=== PATIENT | female | born 1990 | race Caucasian/White ===

== ENCOUNTER 2016-11-10 10:45 | Emergency (ER) | payer OTHER ==
[2016-11-10] MEDS ORDERED: SODIUM CHLORIDE 0.9% 1,000 ML IV ONE (11:16)
[2016-11-10 11:35] LABS: Amorphous Sediment,Urine Few /hpf; Appearance,Urine Cloudy (Clear); Bacteria,Urine Occasional /hpf; Bilirubin,Urine Negative (Negative); Glucose,Urine (UA) Negative (Negative); Ketones,Urine Negative (Negative); Leukocyte Esterase,Urine Small (Negative); Mucus,Urine Occasional /hpf; Nitrite,Urine Negative (Negative); PH, Urine 6.5 (5.0-8.0); Particle Count 9427; Protein,Urine 1+ (Negative); RBC,Urine 1 /hpf (0-5); Specific Gravity,Urine 1.016 (1.001-1.035); Squamous Epithelial Cell,Urine 7 /hpf (0-4); UA Billing (MACRO vs. MICRO) MICRO; WBC,Urine 5 /hpf (0-5)
[2016-11-10 11:45] LABS: Basophils % (A) 0 %; CH 31.7; CHCM 36.3; Eosinophils # (A) 0.1 k/uL (0-0.7); Eosinophils % (A) 1 %; HCT 37.9 % (34.0-46.0); HDW 2.73; Luc # (Auto) 0.13; Luc % (Auto) 1; Lymphocytes # (A) 1.5 k/uL (1.0-4.8); Lymphocytes % (A) 16 %; MCH 32.3 pg (25.0-35.0); MCHC 36.8 g/dL (31.0-37.0); MCV 87.6 fL (80.0-100.0); Mean Platelet Volume 7.6; Monocytes # (A) 0.4 k/uL (0-1.0); Monocytes % (A) 5 %; Neutrophils # (A) 6.9 k/uL (1.3-7.7); Neutrophils % (A) 77 %; RBC 4.33 m/uL (3.80-5.40); RDW 13.1 % (11.5-15.5); WBC (Perox) 8.87
[2016-11-10 11:50] LABS: INR 0.9 (<1.2); Prothrombin Time 9.5 sec (9.0-12.0)
[2016-11-10 11:53] LABS: ALT 46 U/L (9-52); AST 22 U/L (14-36); Alkaline Phosphatase 57 U/L (38-126); Anion Gap 8 mmol/L; Blood Urea Nitrogen 7 mg/dL (7-17); Calcium 9.3 mg/dL (8.4-10.2); Carbon Dioxide 25 mmol/L (22-30); Chloride 105 mmol/L (98-107); Glucose 84 mg/dL (74-99); Non-African American GFR(MDRD) >60 (>60 ml/min/1.73 sqM); Potassium 3.9 mmol/L (3.5-5.1); Sodium 138 mmol/L (137-145); Total Bilirubin 0.4 mg/dL (0.2-1.3); Total Protein 6.4 g/dL (6.3-8.2)
[2016-11-10 11:57] LABS: Partial Thromboplastin Time 22.2 sec (22.0-30.0)
--- NOTE | 2016-11-10 13:17 | US ---
EXAMINATION TYPE: US OB >= 14 wk fetus DATE OF EXAM: 11/10/2016 COMPARISON: None CLINICAL HISTORY: painCramping TECHNIQUE: Transabdominal (TA) GESTATIONAL AGE / DATING Physician Established: (Not established. Dates by LMP: (07/24/2016weeks/15 days) 4 EDC: 04/30/2017 Dates by First Scan: This is first scan Dates by Current Scan: ( weeks/15 days) 2 EDC: 05/02/2017 SURVEY IUP: Single PLACENTA: Posterior PREVIA: No Previa SALBADOR:3 cm 11.3 cm CERVICAL LENGTH (transabdominal: norm > 3.0cm): 3.8 cm CERVICAL LENGTH (transvaginal: norm> 2.5cm): cm (Supplemental transvaginal imaging performed to verify cervical length.) BIOMETRY PRESENTATION: Variable LIE: Transverse with head maternal L/R BPD: 3.0 cm 15 weeks / 3 days HC: 10.3 cm 14 weeks / 6 days AC: 9.3 cm 15 weeks / 4 days FL: 1.7 cm 15 weeks / 2 days ESTIMATED WEIGHT IN GRAMS: 121.6 grams ESTIMATED WEIGHT IN LBS/OZS: 0 lbs. 4 oz. WEIGHT PERCENTAGE BASED ON ESTABLISHED DATES: 25.2% HC/AC: 1.1 FL/AC: 18.9 HEART RATE: 150 bpm RHYTHM: Normal MATERNAL WALL MEASUREMENT: 3.3 cm from skin to anterior uterine wall (if exam limited due to body hab itus). Viable IUP heartrate 150bpm IMPRESSION: Limited survey. Single viable intrauterine corresponding to ultrasound age 15 weeks 2 days with estimated date of delivery 05/02/2017
[2016-11-10 13:26] VITALS: BP 117/70; PULSE 80; RESP 18; TEMP 97.6
--- NOTE | 2016-11-10 13:34 | ED ---
General Adult HPI - General Chief complaint: Urogenital Stated complaint: abdominal pain, 15 weeks Time Seen by Provider: 11/10/16 11:07 Source: patient, family, RN notes reviewed Mode of arrival: ambulatory - History of Present Illness Initial comments: 20 female presenting with abdominal pain. Patient has had 2 miscarriages in the past. She is currently approximately 15 weeks , due date April 30. This was confirmed by ultrasound in [place]. Patient recently moved to the area. She is complaining of crampy abdominal pain which is bilateral lower mild pain for approximately one day. Denies any vaginal bleeding. Denies dysuria. Denies vaginal discharge. Denies nausea vomiting or diarrhea. Denies fever or chills. Last bowel movement was yesterday was normal. She has not been able to establish OB follow-up in this area. - Related Data Home Medications Medication Instructions Recorded Confirmed Qjn-[id number] Acid 1 cap PO DAILY 11/10/16 11/10/16 [-U Capsule (formulary)] buPROPion HCL [Wellbutrin XL] 150 mg PO DAILY 11/10/16 11/10/16 Previous Rx's Medication Instructions Recorded Cephalexin [Keflex] 500 mg PO Q12HR #14 cap 11/10/16 Allergies Allergy/AdvReac Type Severity Reaction Status Date / Time sulfamethoxazole Allergy Rash/Hives Verified 11/10/16 11:23 [From Bactrim] trimethoprim [From Bactrim] Allergy Rash/Hives Verified 11/10/16 11:23 Review of Systems ROS Statement: Those systems with pertinent positive or pertinent negative responses have been documented in the HPI. ROS Other: All systems not noted in ROS Statement are negative. Past Medical History Past Medical History: No Reported History History of Any Multi-Drug Resistant Organisms: None Reported Additional Past Surgical History / Comment(s): PILONIDAL CYST Past Psychological History: Anxiety Smoking Status: Never smoker Past Alcohol Use History: None Reported Past Drug Use History: None Reported General Exam General appearance: alert, in no apparent distress Head exam: Present: atraumatic, normocephalic Eye exam: Present: normal appearance, PERRL ENT exam: Present: normal exam, mucous membranes moist Neck exam: Present: normal inspection. Absent: meningismus, full ROM Respiratory exam: Present: normal lung sounds bilaterally. Absent: respiratory distress, wheezes Cardiovascular Exam: Present: regular rate, normal rhythm GI/Abdominal exam: Present: other (The uterus is palpable just below the umbilicus). Absent: soft, distended, tenderness, guarding Extremities exam: Absent: normal inspection, normal capillary refill, pedal edema Back exam: Present: normal inspection. Absent: CVA tenderness (R), CVA tenderness (L) Neurological exam: Present: alert, oriented X3, CN II-XII intact. Absent: motor sensory deficit Psychiatric exam: Present: normal affect, normal mood Skin exam: Present: warm, dry Course Vital Signs 11/10/16 11/10/16 11/10/16 10:57 12:15 13:23 Temperature 98.8 F 97.2 F L 97.6 F Pulse Rate 97 84 80 Respiratory 18 16 18 Rate Blood Pressure 121/67 120/70 117/70 O2 Sat by Pulse 99 99 97 Oximetry - Reevaluation(s) Reevaluation #1: 11/10/16 13:38 On reevaluation, patient's pain has improved. Medical Decision Making - Medical Decision Making 26 year-old female presents with crampy abdominal pain. There is no associated symptoms of, vaginal bleeding, dysuria, nausea vomiting or diarrhea. Patient has been unable to establish obstetric care due to insurance reasons. She did have a confirmatory ultrasound in [place] at approximately 8 weeks. Ultrasound is obtained today which shows a IUP, heart rate of 150, no acute findings to suggest a reason for the patient's pain. Her pain is mild and resolved on reevaluation. Laboratory studies include a CBC and CMP are unremarkable. Urinalysis shows signs of a mild infection. Urine culture is obtained and patient will be started on antibiotics for asymptomatic bacteriuria in . Patient is given obstetric follow-up. She will return to emergency department with worsening symptoms. - Lab Data Result diagrams: 11/10/16 11:31 11/10/16 11:31 Lab Results 11/10/16 11/10/16 11/10/16 Range/Units 11:16 11:16 11:31 WBC 9.0 (3.8-10.6) k/uL RBC 4.33 (3.80-5.40) m/uL Hgb 14.0 (11.4-16.0) gm/dL Hct 37.9 (34.0-46.0) % MCV 87.6 (80.0-100.0) fL MCH 32.3 (25.0-35.0) pg MCHC 36.8 (31.0-37.0) g/dL RDW 13.1 (11.5-15.5) % Plt Count 270 (150-450) k/uL Neutrophils % 77 % Lymphocytes % 16 % Monocytes % 5 % Eosinophils % 1 % Basophils % 0 % Neutrophils # 6.9 (1.3-7.7) k/uL Lymphocytes # 1.5 (1.0-4.8) k/uL Monocytes # 0.4 (0-1.0) k/uL Eosinophils # 0.1 (0-0.7) k/uL Basophils # 0.0 (0-0.2) k/uL PT (9.0-12.0) sec INR (<1.2) APTT (22.0-30.0) sec Sodium (137-145) mmol/L Potassium (3.5-5.1) mmol/L Chloride (98-107) mmol/L Carbon Dioxide (22-30) mmol/L Anion Gap mmol/L BUN (7-17) mg/dL Creatinine (0.52-1.04) mg/dL Est GFR (MDRD) Af Amer (>60 ml/min/1.73 sqM) Est GFR (MDRD) Non-Af (>60 ml/min/1.73 sqM) Glucose (74-99) mg/dL Calcium (8.4-10.2) mg/dL Total Bilirubin (0.2-1.3) mg/dL AST (14-36) U/L ALT (9-52) U/L Alkaline Phosphatase (38-126) U/L Total Protein (6.3-8.2) g/dL Albumin (3.5-5.0) g/dL HCG, Quant mIU/mL Urine Color Yellow Urine Appearance Cloudy H (Clear) Urine pH 6.5 (5.0-8.0) Ur Specific [place] 1.016 (1.001-1.035) Urine Protein 1+ H (Negative) Urine Glucose (UA) Negative (Negative) Urine Ketones Negative (Negative) Urine Blood Negative (Negative) Urine Nitrite Negative (Negative) Urine Bilirubin Negative (Negative) Urine Urobilinogen 2.0 (<2.0) mg/dL Ur Leukocyte Esterase Small H (Negative) Urine RBC 1 (0-5) /hpf Urine WBC 5 (0-5) /hpf Ur Squamous Epith Cells 7 H (0-4) /hpf Amorphous Sediment Few H (None) /hpf Urine Bacteria Occasional H (None) /hpf Urine Mucus Occasional H (None) /hpf Urine HCG, Qual Detected (Not Detectd) Blood Type Blood Type Recheck Antibody Screen Spec Expiration Date 11/10/16 11/10/16 11/10/16 Range/Units 11:31 11:31 11:31 WBC (3.8-10.6) k/uL RBC (3.80-5.40) m/uL Hgb (11.4-16.0) gm/dL Hct (34.0-46.0) % MCV (80.0-100.0) fL MCH (25.0-35.0) pg MCHC (31.0-37.0) g/dL RDW (11.5-15.5) % Plt Count (150-450) k/uL Neutrophils % % Lymphocytes % % Monocytes % % Eosinophils % % Basophils % % Neutrophils # (1.3-7.7) k/uL Lymphocytes # (1.0-4.8) k/uL Monocytes # (0-1.0) k/uL Eosinophils # (0-0.7) k/uL Basophils # (0-0.2) k/uL PT 9.5 (9.0-12.0) sec INR 0.9 (<1.2) APTT 22.2 (22.0-30.0) sec Sodium 138 (137-145) mmol/L Potassium 3.9 (3.5-5.1) mmol/L Chloride 105 (98-107) mmol/L Carbon Dioxide 25 (22-30) mmol/L Anion Gap 8 mmol/L BUN 7 (7-17) mg/dL Creatinine 0.61 (0.52-1.04) mg/dL Est GFR (MDRD) Af Amer >60 (>60 ml/min/1.73 sqM) Est GFR (MDRD) Non-Af >60 (>60 ml/min/1.73 sqM) Glucose 84 (74-99) mg/dL Calcium 9.3 (8.4-10.2) mg/dL Total Bilirubin 0.4 (0.2-1.3) mg/dL AST 22 (14-36) U/L ALT 46 (9-52) U/L Alkaline Phosphatase 57 (38-126) U/L Total Protein 6.4 (6.3-8.2) g/dL Albumin 3.6 (3.5-5.0) g/dL HCG, Quant 99726.7 mIU/mL Urine Color Urine Appearance (Clear) Urine pH (5.0-8.0) Ur Specific [place] (1.001-1.035) Urine Protein (Negative) Urine Glucose (UA) (Negative) Urine Ketones (Negative) Urine Blood (Negative) Urine Nitrite (Negative) Urine Bilirubin (Negative) Urine Urobilinogen (<2.0) mg/dL Ur Leukocyte Esterase (Negative) Urine RBC (0-5) /hpf Urine WBC (0-5) /hpf Ur Squamous Epith Cells (0-4) /hpf Amorphous Sediment (None) /hpf Urine Bacteria (None) /hpf Urine Mucus (None) /hpf Urine HCG, Qual (Not Detectd) Blood Type B Negative Blood Type Recheck CABO Indicated Antibody Screen NEGATIVE Spec Expiration Date 11/13/2016 - 233 Disposition Clinical Impression: Urinary tract infection, Abdominal pain during in second trimester Disposition: HOME SELF-CARE Condition: Good Instructions: Urinary Tract Infection in Women (ED), Abdominal Pain in (ED) Prescriptions: Cephalexin [Keflex] 500 mg PO Q12HR #14 cap Referrals: None,Stated [Primary Care Provider] - 1-2 days Shanique Hi DO [Doctor of Osteopathic Medicine] - 1-2 days Time of Disposition: 13:34
== END 2016-11-10 13:39 | disposition home or self-care (01) ==
LOC: EC 10:45
DX: O23.42 Unspecified infection of urinary tract in pregnancy, second trimester (principal); Z3A.15 15 weeks gestation of pregnancy; Z88.2 Allergy status to sulfonamides; Z79.899 Other long term (current) drug therapy
CPT/HCPCS: 36415; 76805; 80053; 81001; 81025; 84702; 85025; 85610; 85730; 86850; 86900; 86901; 87086; 96360; 99284